=== PATIENT | male | born 1990 | race African-American/Black ===

== ENCOUNTER 2021-09-13 08:29 | Inpatient (IN) | payer SELFPAY ==
[2021-09-13] MEDS ORDERED: Lorazepam 2 MG/ML VIAL ONE ×2 (09:14→11:25)
[2021-09-13 09:15] LABS: #Basophils 0.1 thou/uL (0.0-0.2); #Lymphocytes 1.6 thou/uL (1.20-3.40); #Monocytes 0.6 thou/uL (0.11-0.59); #Neutrophils 3.2 thou/uL (1.40-6.50); %Basophils 1.4 % (0.0-1.0); %Eosinophils 0.8 % (0.0-10.0); %Lymphocytes 29.2 % (21.0-51.0); %Monocytes 10.6 % (0.0-10.0); %Neutrophils 57.9 % (42.0-75.0); Hemoglobin 15.7 g/dL (14.0-18.0); Mean Corpuscular HGB CONC 32.2 g/dL (32.0-36.0); Mean Corpuscular Hemoglobin 31.8 pg (27.0-31.0); Mean Corpuscular Volume 98.7 fL (78.0-98.0); Mean Platelet Volume 8.5 fL (7.4-10.4); Platelet Count 166 thou/uL (130-400); RBC Distribution Width 11.7 % (11.5-14.5); Red Blood Cell (RBC) Count 4.93 mill/uL (4.70-6.10); White Blood Cell (WBC) Count 5.5 thou/uL (4.8-10.8)
[2021-09-13 09:23] LABS: INR-International Normal Ratio 1.5; PTT 30.2 sec (22.9-36.1); Prothrombin Time 18.6 sec (12.0-14.7)
[2021-09-13 09:40] LABS: ALT (SGPT) 40 U/L (8-55); AST (SGOT) 72 U/L (5-34); Alkaline Phosphatase 239 U/L (40-110); Anion Gap 15 mmol/L (10-20); BUN (Urea Nitrogen) 8 mg/dL (8.9-20.6); Bilirubin, Total 3.3 mg/dL (0.2-1.2); Calc. Creatinine Clearance 0 mL/min (70-130); Calcium 9.3 mg/dL (7.8-10.44); Carbon Dioxide 21 mmol/L (22-29); Chloride 96 mmol/L (98-107); Globulin 4.2 g/dL (2.4-3.5); Glucose 107 mg/dL (70-105); Potassium 4.3 mmol/L (3.5-5.1); Protein, Total 8.2 g/dL (6.0-8.3); Sodium 128 mmol/L (136-145)
[2021-09-13 09:47] LABS: Acetaminophen Less than 10.0 mcg/mL (10.0-30.0); Alcohol Less than 10 mg/dL (Less than 10); Salicylate Less than 8.0 mg/dL (15.0-30.0)
[2021-09-13 09:48] LABS: Amphetamine Not Detected (NotDetected); Barbiturates Screen Not Detected (NotDetected); Benzodiazepine Screen Not Detected (NotDetected); Cocaine Metabolite Screen Not Detected (NotDetected); Methadone Not Detected (NotDetected); Methamphetamine Not Detected (NotDetected); Opiate Screen Not Detected (NotDetected); Oxycodone Screen Not Detected (NotDetected); Phencyclidine (PCP) Not Detected (NotDetected); THC/Cannabinoid Screen Not Detected (NotDetected); Tricyclic Screen Not Detected (NotDetected)
[2021-09-13 09:51] LABS: Bacteria/HPF None Seen HPF (None Seen); Bilirubin Negative (Negative); Blood, Urine 1+ (Negative); Clarity Clear (Clear); Glucose, Urine (Dipstick) Normal (Negative); Ketone, Urine Negative (Negative); Leukocyte Negative Leu/uL (Negative); Nitrite Negative (Negative); Protein, Urine (Dipstick) 100 mg/dL (Neg-Trace); RBC/HPF 0-3 HPF (0-3); Specific Gravity, Urine 1.012 (1.002-1.036); Squamous Epithelial 0-3 HPF (0-3); WBC/HPF 0-3 HPF (0-3)
[2021-09-13] MEDS ORDERED: Multivitamins, Adult 10 ML, Thiamine HCl 100 MG, Folic Acid 1 MG in Dextrose 5 %-0.45 %... IV SCH (10:00)
[2021-09-13] MEDS ORDERED: Vancomycin 1 GM in Premix Bag 1 BAG IVPB SCH (10:00)
[2021-09-13] MEDS ORDERED: Vancomycin 1 GM/200 ML BAG ONE (10:12)
[2021-09-13] MEDS ORDERED: Cefepime 2 GM VIAL ONE (10:12)
[2021-09-13] MEDS ORDERED: Cefepime 2 GM in Sodium Chloride 0.9% 100 ML IVPB SCH (10:15)
[2021-09-13] MEDS ORDERED: Sodium Chloride 0.9% 1,000 ML IV SCH (10:15)
[2021-09-13] MEDS ORDERED: Furosemide 40 MG/4 ML VIAL ONE (10:35)
[2021-09-13] MEDS ORDERED: Thiamine HCl 200 MG/2 ML VIAL SLOW IVP SCH (11:00)
[2021-09-13] MEDS ORDERED: Lorazepam 2 MG/ML VIAL IM PRN (11:54)
[2021-09-13] MEDS ORDERED: Ondansetron ODT 4 MG TAB PO PRN (11:54)
[2021-09-13] MEDS ORDERED: Lorazepam 1 MG TAB PO PRN (11:54)
[2021-09-13] MEDS ORDERED: Electrolyte Replacement Protocol 1 EACH FS SCH (12:00)
[2021-09-13 12:21] LABS: CKMB 1.8 ng/mL (0-6.6)
[2021-09-13] MEDS ORDERED: Electrolyte Replacement Protocol FS PRN (12:45)
[2021-09-13 13:23] LABS: Lipase 57 U/L (8-78); Magnesium 1.8 mg/dL (1.6-2.6); Phosphorus 3.9 mg/dL (2.3-4.7)
[2021-09-13 13:55] LABS: HBCM Index 0.07 S/CO (0-0.79); HBSAg Index 0.23 S/CO (0-0.99); Hep A IgM AB Non-Reactive (NonReactive); Hep B Surf Ag Non-Reactive S/CO (NonReactive); Hep C IgG Ab Non-Reactive (NonReactive); Hep C Index 0.08 S/CO (0-0.79); Hepatitis B Core IgM Abs Non-Reactive (NonReactive)
[2021-09-13] MEDS ORDERED: Furosemide 20 MG/2 ML VIAL SLOW IVP SCH (14:00)
[2021-09-13] MEDS: Lorazepam 1 MG TAB PO SCH ×3 (14:01→23:23)
[2021-09-13 14:07] VITALS: BMI 24.5
[2021-09-13] MEDS ORDERED: Spironolactone 25 MG TAB PO SCH (14:15)
[2021-09-13 15:02] LABS: Syphilis Antibody Nonreactive (Nonreactive); Syphilis Antibody Index 0.02 S/CO (<1.00 Non-Reactive)
[2021-09-13] MEDS: Carvedilol 6.25 MG TAB PO SCH (17:40)
[2021-09-13] MEDS ORDERED: Metoprolol Tartrate 25 MG TAB PO SCH (21:00)
[2021-09-13] MEDS: Lisinopril 5 MG TAB PO SCH (23:23)
[2021-09-13] MEDS: Enoxaparin Sodium 80 MG/0.8 ML SYRINGE SC SCH (23:23)
[2021-09-14 04:33] LABS: #Lymphocytes 1.4 thou/uL (1.20-3.40); #Monocytes 0.8 thou/uL (0.11-0.59); #Neutrophils 3.7 thou/uL (1.40-6.50); %Basophils 0.8 % (0.0-1.0); %Eosinophils 0.3 % (0.0-10.0); %Lymphocytes 23.5 % (21.0-51.0); %Monocytes 13.6 % (0.0-10.0); %Neutrophils 61.9 % (42.0-75.0); Hemoglobin 15.6 g/dL (14.0-18.0); Mean Corpuscular HGB CONC 33.2 g/dL (32.0-36.0); Mean Corpuscular Hemoglobin 33.1 pg (27.0-31.0); Mean Corpuscular Volume 99.7 fL (78.0-98.0); Mean Platelet Volume 8.4 fL (7.4-10.4); Platelet Count 171 thou/uL (130-400); RBC Distribution Width 11.6 % (11.5-14.5); Red Blood Cell (RBC) Count 4.72 mill/uL (4.70-6.10)
[2021-09-14 04:54] LABS: ALT (SGPT) 30 U/L (8-55); AST (SGOT) 55 U/L (5-34); Albumin 3.2 g/dL (3.5-5.0); Alkaline Phosphatase 212 U/L (40-110); Anion Gap 14 mmol/L (10-20); BUN (Urea Nitrogen) 12 mg/dL (8.9-20.6); Bilirubin, Total 4.3 mg/dL (0.2-1.2); Calc. Creatinine Clearance 129 mL/min (70-130); Carbon Dioxide 21 mmol/L (22-29); Chloride 100 mmol/L (98-107); Globulin 3.5 g/dL (2.4-3.5); Glucose 98 mg/dL (70-105); Magnesium 1.9 mg/dL (1.6-2.6); Phosphorus 4.6 mg/dL (2.3-4.7); Potassium 4.3 mmol/L (3.5-5.1); Protein, Total 6.7 g/dL (6.0-8.3); Sodium 131 mmol/L (136-145)
[2021-09-14] MEDS ORDERED: Magnesium 2 GM/50 ML(in water) 2 GM in Premix Bag 1 BAG IVPB SCH (05:15)
[2021-09-14] MEDS: Lorazepam 1 MG TAB PO SCH ×4 (05:45→23:54)
[2021-09-14] MEDS: Enoxaparin Sodium 80 MG/0.8 ML SYRINGE SC SCH ×2 (08:55→20:44)
[2021-09-14] MEDS: Empagliflozin 10 MG TAB PO SCH (08:56)
[2021-09-14] MEDS: Folic Acid 1 MG TAB PO SCH (08:56)
[2021-09-14] MEDS: Multivit, Therapeutic 1 TAB PO SCH (08:56)
[2021-09-14] MEDS: Carvedilol 6.25 MG TAB PO SCH ×2 (08:56→16:56)
[2021-09-14] MEDS: Lisinopril 5 MG TAB PO SCH ×2 (08:56→20:43)
[2021-09-14] MEDS: Spironolactone 25 MG TAB PO SCH (09:58)
[2021-09-14] MEDS: Thiamine HCl 200 MG/2 ML VIAL SLOW IVP SCH (11:35)
[2021-09-14] MEDS ORDERED: Lorazepam 1 MG TAB PO PRN (11:54)
[2021-09-14 12:22] LABS: SARS-CoV-2 PCR by NAA Not Detected (NotDetected)
[2021-09-15 04:34] LABS: #Basophils 0.1 thou/uL (0.0-0.2); #Eosinphils 0.1 thou/uL (0.0-0.7); #Lymphocytes 1.1 thou/uL (1.20-3.40); #Monocytes 0.7 thou/uL (0.11-0.59); %Basophils 1.1 % (0.0-1.0); %Lymphocytes 22.6 % (21.0-51.0); %Monocytes 14.2 % (0.0-10.0); %Neutrophils 61.2 % (42.0-75.0); Hemoglobin 15.4 g/dL (14.0-18.0); Mean Corpuscular Hemoglobin 33.8 pg (27.0-31.0); Mean Corpuscular Volume 99.6 fL (78.0-98.0); Mean Platelet Volume 8.7 fL (7.4-10.4); Platelet Count 174 thou/uL (130-400); RBC Distribution Width 11.7 % (11.5-14.5); Red Blood Cell (RBC) Count 4.54 mill/uL (4.70-6.10); White Blood Cell (WBC) Count 4.9 thou/uL (4.8-10.8)
[2021-09-15 04:48] LABS: ALT (SGPT) 28 U/L (8-55); AST (SGOT) 58 U/L (5-34); Albumin 3.1 g/dL (3.5-5.0); Alkaline Phosphatase 200 U/L (40-110); Anion Gap 14 mmol/L (10-20); BUN (Urea Nitrogen) 15 mg/dL (8.9-20.6); Bilirubin, Total 2.6 mg/dL (0.2-1.2); Calc. Creatinine Clearance 104 mL/min (70-130); Calcium 8.5 mg/dL (7.8-10.44); Carbon Dioxide 21 mmol/L (22-29); Chloride 99 mmol/L (98-107); Globulin 3.5 g/dL (2.4-3.5); Glucose 98 mg/dL (70-105); Potassium 4.1 mmol/L (3.5-5.1); Protein, Total 6.6 g/dL (6.0-8.3); Sodium 130 mmol/L (136-145)
[2021-09-15] MEDS: Lorazepam 1 MG TAB PO SCH (05:18)
[2021-09-15] MEDS: Folic Acid 1 MG TAB PO SCH (09:53)
[2021-09-15] MEDS: Enoxaparin Sodium 80 MG/0.8 ML SYRINGE SC SCH ×2 (09:53→20:29)
[2021-09-15] MEDS: Carvedilol 6.25 MG TAB PO SCH ×3 (09:53→18:53)
[2021-09-15] MEDS: Empagliflozin 10 MG TAB PO SCH (09:54)
[2021-09-15] MEDS: Spironolactone 25 MG TAB PO SCH (09:54)
[2021-09-15] MEDS: Multivit, Therapeutic 1 TAB PO SCH (09:54)
[2021-09-15] MEDS: Lisinopril 5 MG TAB PO SCH ×2 (09:54→20:30)
[2021-09-15] MEDS: Ivabradine 5 MG TAB PO SCH (10:37)
[2021-09-15] MEDS ORDERED: Lorazepam 1 MG TAB PO PRN (11:54)
[2021-09-15] MEDS: Lorazepam 0.5 MG TAB PO SCH ×2 (12:41→18:48)
[2021-09-15] MEDS: Thiamine HCl 200 MG/2 ML VIAL SLOW IVP SCH (12:41)
[2021-09-15] MEDS ORDERED: Carvedilol 6.25 MG TAB PO SCH (18:00)
[2021-09-16] MEDS: Lorazepam 0.5 MG TAB PO SCH ×2 (00:23→05:41)
[2021-09-16 04:52] LABS: ALT (SGPT) 32 U/L (8-55); AST (SGOT) 51 U/L (5-34); Albumin 3.3 g/dL (3.5-5.0); Alkaline Phosphatase 196 U/L (40-110); Anion Gap 14 mmol/L (10-20); BUN (Urea Nitrogen) 16 mg/dL (8.9-20.6); Bilirubin, Total 1.8 mg/dL (0.2-1.2); Calc. Creatinine Clearance 101 mL/min (70-130); Calcium 8.7 mg/dL (7.8-10.44); Carbon Dioxide 20 mmol/L (22-29); Chloride 98 mmol/L (98-107); Globulin 3.5 g/dL (2.4-3.5); Glucose 107 mg/dL (70-105); Protein, Total 6.8 g/dL (6.0-8.3); Sodium 128 mmol/L (136-145)
[2021-09-16 04:58] LABS: Lymphocytes 21 % (21-51); MDiff Complete? YES; Mean Corpuscular Hemoglobin 33.1 pg (27.0-31.0); Monocytes 15 % (0-10); Neutrophil 64 % (42-75); Platelet Count 155 thou/uL (130-400); RBC Distribution Width 11.5 % (11.5-14.5); Red Blood Cell (RBC) Count 4.52 mill/uL (4.70-6.10); White Blood Cell (WBC) Count 4.2 thou/uL (4.8-10.8)
[2021-09-16] MEDS ORDERED: Carvedilol 6.25 MG TAB PO SCH (08:00)
[2021-09-16] MEDS ORDERED: Apixaban 5 MG TAB PO SCH (09:00)
[2021-09-16] MEDS: Ivabradine 5 MG TAB PO SCH (10:32)
[2021-09-16] MEDS: Spironolactone 25 MG TAB PO SCH (10:32)
[2021-09-16] MEDS: Multivit, Therapeutic 1 TAB PO SCH (10:32)
[2021-09-16] MEDS: Folic Acid 1 MG TAB PO SCH (10:32)
[2021-09-16] MEDS: Lisinopril 5 MG TAB PO SCH (10:32)
[2021-09-16] MEDS: Empagliflozin 10 MG TAB PO SCH (10:33)
[2021-09-16] MEDS ORDERED: Lorazepam 0.5 MG TAB PO PRN (11:54)
[2021-09-16] MEDS ORDERED: Thiamine 100 MG TAB PO SCH (15:30)
[2021-09-16] MEDS: Thiamine HCl 200 MG/2 ML VIAL SLOW IVP SCH (15:32)
[2021-09-16 16:15] VITALS: BP 105/70; TEMP 97.5
[2021-09-17] MEDS ORDERED: Thiamine 100 MG TAB PO SCH (12:00)
== END 2021-09-16 16:51 | disposition left against medical advice (07) | DRG 314 ==
LOC: ERS 08:29 → 2NO 13:57
PROVIDERS: ADMIT Family Medicine; ATTEND Family Medicine
PROC: HZ2ZZZZ Detoxification Services for Substance Abuse Treatment (ICD-10-PCS; principal; 2021-09-13)
DX: I42.6 Alcoholic cardiomyopathy (principal); I50.21 Acute systolic (congestive) heart failure; F10.139 Alcohol abuse with withdrawal, unspecified; K92.0 Hematemesis; E87.1 Hypo-osmolality and hyponatremia; I24.0 Acute coronary thrombosis not resulting in myocardial infarction; R74.01 Elevation of levels of liver transaminase levels; Z20.822 Contact with and (suspected) exposure to COVID-19; R44.1 Visual hallucinations; I08.1 Rheumatic disorders of both mitral and tricuspid valves; Z82.49 Family history of ischemic heart disease and other diseases of the circulatory system
CPT/HCPCS: 36415; 36416; 71045; 76705; 80053; 80074; 80306; 80307; 81003; 81015; 82553; 83605; 83690; 83735; 83880; 84100; 84145; 84443; 84484; 85025; 85610; 85730; 86780; 87040; 87086; 87804; 93005; 93010; 93306; 94760; 96365; 96375; 96376; J0692; J1650; J1940; J2060; J3370; J3411; J3475; J7042; U0003; U0005

== ENCOUNTER 2024-04-06 09:54 | Emergency (ER) | payer MEDICARE, OTHER ==
[2024-04-06 10:31] LABS: #Basophils 0.09 10x3/uL (0.0-0.2); %Basophils 1.6 % (0.0-1.0); %Eosinophils 1.8 % (0.0-10.0); %Lymphocytes 42.2 % (21.0-51.0); %Monocytes 14.1 % (0.0-10.0); %Neutrophils 39.9 % (42.0-75.0); Hematocrit 35.6 % (42.0-52.0); Hemoglobin 12.5 g/dL (14.0-18.0); Mean Corpuscular HGB CONC 35.1 g/dL (32.0-36.0); Mean Corpuscular Hemoglobin 32.6 pg (27.0-31.0); Mean Platelet Volume 8.8 fL (7.4-10.4); Platelet Count 324 10x3/uL (130-400); RBC Distribution Width 15.9 % (11.5-14.5); Red Blood Cell (RBC) Count 3.83 mill/uL (4.70-6.10)
[2024-04-06] MEDS ORDERED: Ketorolac Tromethamine 30 MG (1 mL) VIAL ONE (10:40)
[2024-04-06 10:46] LABS: ALT (SGPT) 45 U/L (8-55); AST (SGOT) 156 U/L (5-34); Albumin 3.4 g/dL (3.5-5.0); Alkaline Phosphatase 222 U/L (40-110); Anion Gap 18 mmol/L (10-20); BUN (Urea Nitrogen) 4 mg/dL (8.9-20.6); Bilirubin, Total 0.8 mg/dL (0.2-1.2); Calc. Creatinine Clearance 0 mL/min (70-130); Calcium 8.9 mg/dL (7.8-10.44); Carbon Dioxide 23 mmol/L (22-29); Chloride 106 mmol/L (98-107); Estimated GFR 122; Globulin 5.1 g/dL (2.4-3.5); Glucose 98 mg/dL (70-105); Potassium 3.1 mmol/L (3.5-5.1); Protein, Total 8.5 g/dL (6.0-8.3); Sodium 144 mmol/L (136-145)
[2024-04-06] MEDS ORDERED: Potassium Chloride 20 MEQ TAB ONE (10:52)
[2024-04-06 11:09] LABS: Troponin I 0.042 ng/mL (< 0.028)
== END 2024-04-06 11:59 | disposition home or self-care (01) ==
LOC: ERS 09:54
DX: M72.2 Plantar fascial fibromatosis (principal); E87.6 Hypokalemia; G62.9 Polyneuropathy, unspecified; R79.89 Other specified abnormal findings of blood chemistry; Z55.6 Problems related to health literacy; Z75.3 Unavailability and inaccessibility of health-care facilities; Z79.891 Long term (current) use of opiate analgesic; Z79.899 Other long term (current) drug therapy
CPT/HCPCS: 71045; 80053; 83880; 84484; 85025; 93005; 94760; 96374; 99284; J1885